=== PATIENT | male | born 2000 | race Caucasian/White ===

== ENCOUNTER 2023-10-20 16:13 | Emergency (ER) | payer OTHER, SELFPAY ==
[2023-10-20] VITALS (10 sets, daily range): BP systolic 103–129; BP diastolic 68–82; PULSE 72–85; RESP 16–18; TEMP 36.3; O2SAT 98–100
[2023-10-20] MEDS: FAMOTIDINE 20 MG/2 ML VIAL IV PUSH (19:56)
[2023-10-20] MEDS: BELLADONNA ALK/PHENOB ELIX 10 ML, MAG HYDROX/ALUMINUM HYD/SIMETH 30 ML, LIDOCAINE HCL 2... PO (19:56)
--- NOTE | 2023-10-20 20:13 | ED.GENADULT ---
HPI - General Adult General Chief complaint: Abdominal Pain Stated complaint: abd pain x 2 weeks Time Seen by Provider: 10/20/23 19:21 Source: patient Mode of arrival: ambulatory Limitations: no limitations History of Present Illness HPI narrative: This is a 23-year-old male with chief complaint of 2 weeks of abdominal pain. Patient states that he was seen at his PCP a few days ago and has been taking Prilosec for the last 2 days. Reports pain location is in the periumbilical and epigastric region. Does not radiate. Patient states that the pain initially was only when he was eating but now has become a little more constant but certainly worse with eating. Reports a little bit of nausea but no vomiting. Denies any fevers, chills, diarrhea, or flank pain or urinary symptoms. Related Data Allergies Allergy/AdvReac Type Severity Reaction Status Date / Time No Known Allergies Allergy Verified 10/20/23 19:40 Review of Systems Review of Systems: All systems as dictated in HPI Exam Narrative: GENERAL: Well-appearing, well-nourished, and in no acute distress. HEAD: Normocephalic, atraumatic. EYES: PERRLA and EOMI. ENT: Nares clear, no rhinorrhea or epistaxis. Mucous membranes moist. Oropharynx without tonsillar hypertrophy exudate or other lesions. NECK: Supple. No adenopathy or masses. CHEST: No respiratory distress. Clear to auscultation. No wheezes rales or rhonchi HEART: Regular rate and rhythm. No murmur heard. Normal peripheral pulses. ABDOMEN: Mild tenderness to the epigastrium. Soft, otherwise nontender, nondistended, normal active bowel sounds. No flank tenderness bilaterally. MSK: Normal range of motion. No edema. SKIN: Warm, dry, no rash. NEURO: Alert and oriented x3. No focal deficits. PSYCH: Normal mood and affect. Course Course Emergency Course: Re-evaluation 2043: Feeling much improved and currently asymptomatic after Pepcid and GI cocktail Vital Signs Vital signs: Vital Signs Temperature 97.3 F L 10/20/23 16:20 Pulse Rate 85 10/20/23 16:20 Respiratory Rate 18 10/20/23 16:20 Blood Pressure 125/82 10/20/23 16:20 Pulse Oximetry 100 10/20/23 16:20 Oxygen Delivery Room Air 10/20/23 16:20 Temperature 97.3 F L 10/20/23 16:20 Pulse Rate 72 10/20/23 21:00 Respiratory Rate 16 10/20/23 21:00 Blood Pressure 116/68 10/20/23 21:00 Pulse Oximetry 99 10/20/23 21:00 Oxygen Delivery Room Air 10/20/23 16:20 Medical Decision Making MDM Narrative Medical decision making narrative: This is a 23-year-old male who presents to the ED with chief complaint of epigastric pain for the past couple of weeks, worse with the eating. Previously prescribed Prilosec. Vitals are normal. Exam shows some mild epigastric tenderness but otherwise benign. No rigidity or guarding. Lab work is grossly unremarkable. Lipase is negative. Urinalysis is unremarkable as well. Symptoms are consistent with gastritis. He improved greatly with GI cocktail and Pepcid here. Discussed with patient that he will need to be on the prior psych for few more days for to start really being efficacious. He is also a frequent energy drink and alcohol drinker. We discussed that he has to reduce these things as well as other spicy and acidic foods to reduce his symptoms. Pt will be discharged in stable condition. Return precautions given and supportive measures discussed. Pt is understanding and agreeable with plan for discharge and follow-up with PCP. Vital Signs Vital Signs: Vital Signs Temperature 97.3 F L 10/20/23 16:20 Pulse Rate 85 10/20/23 16:20 Respiratory Rate 18 10/20/23 16:20 Blood Pressure 125/82 10/20/23 16:20 Pulse Oximetry 100 10/20/23 16:20 Oxygen Delivery Room Air 10/20/23 16:20 Temperature 97.3 F L 10/20/23 16:20 Pulse Rate 72 10/20/23 21:00 Respiratory Rate 16 10/20/23 21:00 Blood Pressure 116/68 10/20/23 21:00 Pulse Oximetry 99 10/20/23
[2023-10-20 20:14] LABS: Basophils Percent Auto 0.2 % (0.2-1.2); Eosinophils Absolute Auto 0.1 K/mm3 (0-0.3); Eosinophils Percent Auto 1.6 % (0-4.4); Hematocrit 37.9 % (42.0-52.0); Hemoglobin 11.5 g/dL (14.0-18.0); Immature Granulocyte Absolute 0.03 K/mm3 (0.00-0.031); Immature Granulocyte Percent A 0.3 % (0-0.5); Lymphocytes Absolute Auto 1.56 K/mm3 (0.9-3.2); Lymphocytes Percent Auto 17.6 % (18.3-44.2); Mean Corpuscular HGB Conc 30.3 g/dl (32-36); Mean Corpuscular Volume 79.1 fl (80-100); Mean Platelet Volume 9.9 fl (7.4-10.4); Monocytes Absolute Auto 0.5 K/mm3 (0.1-0.6); Monocytes Percent Auto 5.9 % (2.6-8.5); Neutrophils Absolute Auto 6.6 K/mm3 (1.3-6.7); Neutrophils Percent Auto 74.4 % (45.5-73.1); Platelet Count Result 340 k/mm3 (150-375); Red Blood Count 4.79 M/mm3 (4.6-6.20); White Blood Count 8.9 K/mm3 (4.5-10.0)
[2023-10-20 20:30] LABS: Alanine Aminotransferase 15 U/L (6-50); Albumin Level 4.3 g/dL (3.5-5.1); Alkaline Phosphatase 65 U/L (38-126); Anion Gap 8 mmol/L (8-16); Aspartate Amino Transferase 26 U/L (17-59); Bilirubin,Total 0.4 mg/dL (0.2-1.3); Blood Urea Nitrogen 8 mg/dL (9-20); Calcium 9.7 mg/dL (8.4-10.2); Carbon Dioxide 27 mmol/L (22-30); Chloride 104 mmol/L (98-107); Estimated CRCL calculation 95 ml/min; Estimated Glomerular Filt Rate > 60; Glucose 113 mg/dL (65-110); Lactic Acid Reflex 0.9 mmol/L (0.7-2.0); Lipase 60 U/L (23-300); Potassium 3.8 mmol/L (3.4-5.0); Sodium 139 mmol/L (137-145)
[2023-10-20 20:31] LABS: Appearance Urine Clear (Clear); Bacteria Urine None Seen /hpf; Bilirubin Urine Negative (Negative); Blood Urine 2+ (Negative); Color Urine Yellow (Yellow); Glucose Urine UA Negative (Negative); Ketones Urine Trace mg/dL (Negative); Leukocyte Esterase Ur Negative LEU/UL (Negative); Nitrate Urine Negative (Negative); Non Pathogenic Casts 0-2; Protein Urine Negative (Negative); Specific Grav Ur 1.019 (1.001-1.035); Squamous Epithelial Cell Urine None seen /hpf (Few); Urobilinogen Urine 0.2 mg/dL (<2.0); WBC Urine 0-5 /hpf; pH Urine 5.5 (5.0-9.0)
[2023-10-20 20:41] LABS: Add Urine Microscopic? YES
== END 2023-10-20 21:01 | disposition home or self-care (01) ==
PROVIDERS: Emergency Provider Physician Assistant; PCP Internal Medicine
DX: K52.9 Noninfective gastroenteritis and colitis, unspecified (principal)
CPT/HCPCS: 36415; 80048; 80076; 81001; 83605; 83690; 85025; 96374; 99284; A9270